=== PATIENT | female | born 1930 | race Caucasian/White ===

== ENCOUNTER 2018-05-15 18:47 | Inpatient (IN) | payer OTHER, MEDICAID ==
[~2018-05-15] VITALS: Ht 152.4 cm; Wt 59.4 kg
--- NOTE | 2018-05-15 19:11 | NUR ---
REPORT TAKEN FROM DAY SHIFT RN. ASSUMING PT CARE AT THIS TIME.
[2018-05-15 19:39] LABS: BASOPHILS # (AUTO) 0.1 K/uL (0.0-8.0); BASOPHILS % (AUTO) 1.1 % (0.0-2.0); EOSINOPHILS # (AUTO) 1.2 K/uL (0.0-0.7); EOSINOPHILS % (AUTO) 14.8 % (0.0-7.0); HEMATOCRIT 36.3 % (31.2-41.9); HEMOGLOBIN 12.3 g/dL (10.9-14.3); LYMPHOCYTES # (AUTO) 2.4 K/uL (20.0-40.0); LYMPHOCYTES % (AUTO) 30.5 % (20.5-51.5); MEAN CORPUSCULAR HGB CONC 34 g/dL (32.3-35.6); MEAN CORPUSCULAR VOLUME 97.6 fL (75.5-95.3); MONOCYTES # (AUTO) 0.6 K/uL (2.0-10.0); MONOCYTES % (AUTO) 7.8 % (0.0-11.0); NEUTROPHILS # (AUTO) 3.6 K/uL (1.8-8.9); NEUTROPHILS % (AUTO) 45.8 % (38.5-71.5); PLATELET COUNT (AUTO) 219 K/uL (179-408); RED BLOOD CELL COUNT(AUTO) 3.72 MIL/uL (3.63-4.92); WHITE BLOOD COUNT (AUTO) 7.8 K/uL (3.8-11.8)
--- NOTE | 2018-05-15 19:52 | NUR ---
PT TAKEN VIA GURNEY TO RADIOLOGY. NO ACUTE DISTRESS NOTED.
[2018-05-15 19:54] LABS: CARBON DIOXIDE 29 mmol/L (21-32); CHLORIDE 105 mmol/L (98-107); CREATININE 0.9 mg/dL (0.6-1.3); GLUCOSE 94 mg/dL (74-106); POTASSIUM 3.9 mmol/L (3.5-5.1); UREA NITROGEN, BLOOD 22 mg/dL (7-18)
[2018-05-15 19:55] LABS: ALANINE AMINOTRANSFERASE 19 U/L (14-59); ALKALINE PHOSPHATASE 74 U/L (50-136); ASPARTATE AMINOTRANSFERASE 20 U/L (15-37); BILIRUBIN,DIRECT 0.2 mg/dL (0.0-0.2); BILIRUBIN,TOTAL 0.8 mg/dL (0.2-1.0); TOTAL PROTEIN, SERUM 7.5 g/dL (6.4-8.2)
[2018-05-15 19:56] LABS: ACETAMINOPHEN < 2.0 ug/mL (10-30)
[2018-05-15 19:59] LABS: ETHANOL < 3 MG/DL (0-0)
[2018-05-15 20:21] LABS: THYROID STIMULATING HORMONE 2.614 mIU/mL (0.358-3.740)
--- NOTE | 2018-05-15 20:38 | NUR ---
REPORT GIVEN TO JESSICA MCCARTY.
--- NOTE | 2018-05-15 20:41 | NUR ---
DOG IS W/ [facility] [address] [facility] THEY WILL HOLD THE DOG FOR 30 DAYS
--- NOTE | 2018-05-15 21:02 | NUR ---
Pt. admitted to MHU , under care of Dr. MONIQUE/[facility] Belongs List completed
[2018-05-15 21:10] VITALS: BP 133/79
[2018-05-15] MEDS ORDERED: ACETAMINOPHEN 325 MG TABLET PO PRN (21:15)
[2018-05-15] MEDS ORDERED: MAGNESIUM HYDROXIDE 30 ML LIQUID UDC PO PRN (21:15)
[2018-05-15] MEDS ORDERED: TEMAZEPAM 7.5 MG CAPSULE PO PRN (21:15)
[2018-05-15] MEDS ORDERED: MAG HYDROX/AL HYDROX/SIMETH 30 ML LIQUID UDC PO PRN (21:15)
[2018-05-15] MEDS ORDERED: LORAZEPAM 0.5 MG TABLET PO PRN (21:15)
--- NOTE | 2018-05-15 21:30 | NUR ---
GPS: PATIENT ADMITTED TO MHU , UNDER CARE OF Dr. MONIQUE/EVARISTO FOR DTO/GD, VIA W/C. PATIENT IS A/O X2 TO NAME AND PLACE. AMBULATORY,COOPERATIVE WITH CARE. ATE SANDWICH AND TOOK SHOWER. PLEASANT UPON APPROACH. NO AGITATION NOTED.SOME DELUSIONAL NOTED. STATED I HAVE SON AND 2 DAUGHTER BUT I DON'T WANT THEM TO KNOW.I AM IN HOSPITAL. ASSISTED WITH SHOWER. NO C/O PAIN OR DISCOMFORT AT THIS TIME.BELONGS LIST COMPLETED.CONTINUE MONITORING FOR SAFETY.
--- NOTE | 2018-05-16 06:12 | NUR ---
GPS: REMAIN CALM AND COOPERATIVE WITH NURSING CARE. NO BEHAVIOR PROBLEM NOTED. SLEPT 6:30 HRS THROUGH THE NIGHT. CONTINUE PLAN OF CARE.
[2018-05-16 07:30] VITALS: BP 161/90
--- NOTE | 2018-05-16 13:33 | NUR ---
GPS.RN- 14 DAY HOLD ADVISED TO PATIENT, FAXED TO COURT NOTIFICATION, FINANCIAL AID MANAGER NEEDED. Addendum: 05/16/18 at 1449 by MENDEZ SILVERMAN RN DISREGARD ENTRY ENTERED INCORRECTLY
[2018-05-16] MEDS: busPIRone 5 MG TABLET PO SCH ×2 (13:38→17:00)
[2018-05-16 16:06] VITALS: BP 165/69
[2018-05-16] MEDS ORDERED: hydrALAZINE HCL 25 MG TABLET PO PRN (19:15)
[2018-05-16 20:00] VITALS: BP 169/82
[2018-05-16] MEDS: AMLODIPINE 5 MG TABLET PO SCH (20:09)
[2018-05-16] MEDS: QUETIAPINE FUMARATE 25 MG TABLET PO SCH (20:09)
[2018-05-16 20:30] VITALS: BP 154/81
--- NOTE | 2018-05-17 06:39 | NUR ---
GPS: REMAIN CALM AND COOPERATIVE WITH NURSING CARE. NO BEHAVIOR PROBLEM NOTED. SLEPT 7 HRS THROUGH THE NIGHT. CONTINUE PLAN OF CARE.
[2018-05-17 07:30] VITALS: BP 158/84
[2018-05-17] MEDS: busPIRone 5 MG TABLET PO SCH ×2 (08:23→16:56)
[2018-05-17] MEDS: AMLODIPINE 5 MG TABLET PO SCH (08:24)
[2018-05-17 15:16] VITALS: BP 154/81
[2018-05-17 20:00] VITALS: BP 150/81
[2018-05-17] MEDS: QUETIAPINE FUMARATE 25 MG TABLET PO SCH (20:41)
--- NOTE | 2018-05-18 05:57 | NUR ---
Patient slept 8 hours in total. No behavioral issues. No acute distress noted. Denies pain. Patient was med compliant. Patient remains cooperative. Vital signs stable. Safety and comfort measures maintained t/o shift. All meds given as ordered. All needs met.
[2018-05-18 07:30] VITALS: BP 150/85
[2018-05-18] MEDS: busPIRone 5 MG TABLET PO SCH ×3 (08:30→16:56)
[2018-05-18] MEDS: AMLODIPINE 5 MG TABLET PO SCH (08:31)
--- NOTE | 2018-05-18 13:47 | NUR ---
Initial Discharge Plan: Pt resides at [id number] [place] [address]. Pt reports living in the back area of the home in a covered parking space. Pt reports making the space into her home. Pt was unable to recall her telephone #. Upon discharge pt would like to return to her home where her belongings are at until the eviction goes through in June. SW inquired if pt would like alternative placement (i.e. Assisted Living, Board & Care) however pt denied, stating I'm not leaving with out my dog and belongings. SW will follow up to ensure pt is safely and adequately discharged.
--- NOTE | 2018-05-18 16:06 | NUR ---
Firearms Report: Mix Crusher Operator completed and submitted [employer] Firearms Report on 05/18/18 for 5150 DTO certification.
--- NOTE | 2018-05-18 16:22 | NUR ---
UR Note: Faxed updated clinicals to [facility] FloormanNeftali [phone]; f. [phone]). Awaiting authorization. SW will continue to follow-up.
[2018-05-18 16:51] VITALS: BP 137/80
[2018-05-18 19:30] VITALS: BP 132/75
[2018-05-18] MEDS: QUETIAPINE FUMARATE 25 MG TABLET PO SCH (20:00)
--- NOTE | 2018-05-18 22:00 | NUR ---
received to care, lying in bed, isolative, but pleasant upon approach. compliant with medications and staff direction. as of 2199, she appears to be asleep. no dsitress noted. will continue to monitor closely.
--- NOTE | 2018-05-19 07:11 | NUR ---
slept 8.5 hours total
[2018-05-19 07:30] VITALS: BP 120/80
[2018-05-19] MEDS: busPIRone 5 MG TABLET PO SCH ×3 (08:22→16:36)
[2018-05-19] MEDS: AMLODIPINE 5 MG TABLET PO SCH (08:23)
--- NOTE | 2018-05-19 10:25 | NUR ---
SW spoke to pt for discharge planning purposes. SW inquired about placement in order to assess if pt needed referrals. Per pt she will be retuning to [id number] [place] [address]; where she has a make-shift home in a parking space of the residence. Pt stated she would like to retrieve all her possessions and states per court order she has until June to vacate the premises. Pt reported she was not able to currently pay for any type of living arrangement (i.e. Assisted Living and or Board & Care) and reported receiving $900/month.
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
--- NOTE | 2018-05-19 13:17 | NUR ---
SANTO contacted [place] Radiator Mechanic, Neftali [phone] for discharge planning purposes. SANTO inquired about a list of approved SNF. SANTO left a detailed message; asking for a callback. SANTO will follow up.
--- NOTE | 2018-05-19 14:09 | NUR ---
TAMMY received a call back from Sophia Wic Site Coordinator, Neftali [phone] who inquired if a pt evaluation had been ordered for pt. Tammy informed Neftali that a request had been made on this date. Request made to Nurse Itz. Per Neftali, pt could qualify for a SNF depending on her pt evaluation/need. TAMMY will follow up.
--- NOTE | 2018-05-19 14:48 | NUR ---
UR Review: Tammy Faxed updated clinicals to [place] [employer] ChiefNeftali [phone]; f. [phone]). TAMMY will continue to follow-up.
[2018-05-19 17:13] VITALS: BP 141/83
[2018-05-19 19:46] VITALS: BP 147/78
[2018-05-19] MEDS: QUETIAPINE FUMARATE 25 MG TABLET PO SCH (20:00)
--- NOTE | 2018-05-20 06:00 | NUR ---
slept 9 hours total.
[2018-05-20 07:30] VITALS: BP 128/75
[2018-05-20] MEDS: AMLODIPINE 5 MG TABLET PO SCH (08:42)
[2018-05-20] MEDS: busPIRone 5 MG TABLET PO SCH ×2 (08:42→16:38)
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
--- NOTE | 2018-05-20 12:14 | NUR ---
SW contacted Ivanna Michael, from [facility] (pt still has a case open) to collaborate in helping pt with placement/discharge plan. SW was unable to speak to her as she is not in today however left a detailed message asking for a call back. SANTO will follow up.
[2018-05-20 12:21] LABS: *BILIRUBIN,URIN NEGATIVE (NEGATIVE); *BLOOD, URINE Trace-intact (NEGATIVE); *CLARITY,URINE CLEAR (CLEAR); *COLOR,URINE YELLOW (YELLOW); *KETONES,URINE NEGATIVE (NEGATIVE); *PROTEIN,URINE NEGATIVE (NEGATIVE); *UROBILINOGEN,URINE 0.2 E.U./dl (NORMAL); LEUKOCYTE ESTERASE ,URINE NEGATIVE (NEGATIVE); NITRITE, URINE NEGATIVE (NEGATIVE); UGLUCOSE NEGATIVE (NEGATIVE)
[2018-05-20 12:28] LABS: BACTERIA,URINE MODERATE /HPF (NONE SEEN); RBC,URINE 0-3 /HPF (0-3); SQUAMOUS EPITHELIAL CELL,UR FEW /HPF (NONE SEEN); WBC,URINE 0-3 /HPF (0-3)
--- NOTE | 2018-05-20 12:28 | NUR ---
SANTO contacted [facility] ; a message was left for a callback. Channel, Quality Supervisor to call back. SANTO will follow up.
--- NOTE | 2018-05-20 14:45 | NUR ---
SW received the following prison referral ; [place] for [facility] . Please follow up.
--- NOTE | 2018-05-20 15:53 | NUR ---
UR Note: Tammy Faxed updated clinicals to [employer] Sous Chef Kitchen Manager, Neftali [phone]; f. [phone]). TAMMY will continue to follow-up. AUTH# [id number] TAMMY received call from [place] S[employer] Kitchen Manager, Ozzy ([phone]) reporting that he would like to assist in placement for patient. Per Ozzy, pt would need to be conserved in order for pt to have placement in a "locked mental facility." Placed call to Neftali, and spoke with him at length about discharge planning. Per Neftali, [facility] would not authorize for patient's stay if the patient were to be conserved. TAMMY also left message with him about authorization for recuperative care. TAMMY will continue to follow-up.
[2018-05-20 16:36] VITALS: BP 138/68
[2018-05-20] MEDS: DIVALPROEX ER 250 MG TAB.SR.24H PO SCH (16:37)
[2018-05-20 20:16] VITALS: BP 137/72
[2018-05-20] MEDS: QUETIAPINE FUMARATE 25 MG TABLET PO SCH (20:37)
--- NOTE | 2018-05-20 22:00 | NUR ---
received to care, lying in bed, isolative, but pleasant upon approach. compliant with medications snacks, and staff direction. as of 2200, she appears to be asleep. no distress noted. will continue to monitor closely.
--- NOTE | 2018-05-21 07:00 | NUR ---
slept 8 hours total
[2018-05-21 07:30] VITALS: BP 105/75
[2018-05-21] MEDS: busPIRone 5 MG TABLET PO SCH ×2 (08:40→17:26)
[2018-05-21] MEDS: AMLODIPINE 5 MG TABLET PO SCH (08:41)
--- NOTE | 2018-05-21 14:42 | NUR ---
SS Discharge Planning Note: Rn Access placed call to [facility] ([phone]) and spoke with their Learning Coordinator who stated they are not able to provide services to patient with a dementia or Alzheimer's diagnosis. Was referred to [employer]'s [employer] Hotline ( ). SANTO spoke with Michael at [facility] to inquire about available resources for the patient post-discharge. Michael provided resource packet to this real estate underwriter as well as further information about local supports for this patient. SANTO placed call to [facility] ( ) to inquire about bed availability. Spoke with Dona who reported they do not have beds available at this time. SANTO contacted [facility] ([phone]) and spoke to raul, who advised real estate underwriter to call day of discharge at 10am to inquire about bed availability. SANTO spoke with Neftali Prado CM ([phone]) to inquire about recuperative care options for patient and to update on discharge planning process. Per Neftali, there are no recuperative care programs available to the patient at this time. SANTO informed Neftali about potential halfway placement. Neftali reported he would alert team and will assign a social work case manager to follow up with the patient to start working on long-term placement. SANTO will continue to follow-up to ensure safe discharge for patient.
--- NOTE | 2018-05-21 15:02 | NUR ---
UR Note: SANTO faxed updated clinicals to Neftali Prado CM ([phone]; f. [phone]). AUTH# [id number]. Pt authorized until 05/21/18 with review due on 05/22/18. SANTO will continue to follow-up. SANTO spoke with Neftali Prado CM ([phone]) to inquire about recuperative care options for patient and to update on discharge planning process. Per Neftali, there are no recuperative care programs available to the patient at this time. SANTO informed Neftali about potential fdc placement. Neftali reported he would alert team and will assign a geriatric social worker to follow up with the patient to start working on long-term placement. SANTO shared information about potential fdc placement with Neftali. SANTO will continue to follow-up.
[2018-05-21 16:23] VITALS: BP 150/72
--- NOTE | 2018-05-21 17:00 | NUR ---
Gps/Stave Mill Hand-Attends an participates in her group therapy, min.interactions with her peers, had been redirectable /
[2018-05-21] MEDS: DIVALPROEX ER 250 MG TAB.SR.24H PO SCH (17:26)
[2018-05-21] MEDS: QUETIAPINE FUMARATE 25 MG TABLET PO SCH (20:10)
[2018-05-21 20:45] VITALS: BP 148/77
--- NOTE | 2018-05-22 06:13 | NUR ---
GPS: Remain calm and cooperative with medications and care. slept 7 hrs through the night. no agitation noted at this time. continue monitoring for safety.
[2018-05-22] MEDS: busPIRone 5 MG TABLET PO SCH (08:25)
[2018-05-22] MEDS: AMLODIPINE 5 MG TABLET PO SCH (08:25)
[2018-05-22 11:12] VITALS: BP 159/90
--- NOTE | 2018-05-22 11:18 | NUR ---
Gps/Doper Operator- Discharge planning in progress.
--- NOTE | 2018-05-22 11:18 | NUR ---
Discharge Note: Patient will be discharged back to her previous address [[id number] [place] [address]] via taxi. Patient was provide with fdc placement but refused. Metal Grader alerted patients Adult Protective Services Worker, Otis Chang about patients discharge disposition and her refusal of fdc placement. Patient was provided with the homeless fdc packet, which includes a list of emergency shelters, housing resources, drop in centers, and showers/hot meals centers. This also included the Homeless Information Hotline (779)-006-2933 or 211, [employer] Office [employer] and [employer] , and the [facility] ([phone]; [employer] [facility] ([phone]). Patient has signed the Homeless Patient Waiver Form. Patient was referred to [facility] [phone] for Red Mud Thickener Operator referrals. Patient will be provided with Psychiatrist referrals from her HMO, [employer]. Patient was provided with outpatient mental health resources to [facility] Crisis Line , Katrina Jay , and the National Suicide Prevention Lifeline .
[2018-05-22 12:13] VITALS: BP 133/83
--- NOTE | 2018-05-22 14:20 | NUR ---
Gps/Special Education Aide- Reviewed medications, prescriptions , diet, safety emphasized, verbalized understanding. Reviewed referrals per [facility].Patient in good spirit, returned black cell phone, no self propelled mining machine operator.Patient will be discharged to home to previous address she provided.No complaints noted. Denies SI. no HI. noted.Will be discharged to [address] [place] [address]. [phone].via taxi (voucher)
--- NOTE | 2018-05-22 16:11 | NUR ---
UR Note: SANTO Faxed discharge clinicals to [place] [facility] SpecialistNeftali [phone]; f. [phone]). SANTO will continue to follow-up if needed. AUTH# [id number]
== END 2018-05-22 14:45 | disposition home or self-care (01) | DRG 885 ==
LOC: ER 18:49 → GPS 20:38
PROVIDERS: ADMIT Psychiatry & Neurology Psychosomatic Medicine; ATTEND Internal Medicine
DX: F25.0 Schizoaffective disorder, bipolar type (principal); F01.50 Vascular dementia, unspecified severity, without behavioral disturbance, psychotic disturbance, mood disturbance, and anxiety; Z59.0 Homelessness; I10 Essential (primary) hypertension; I67.2 Cerebral atherosclerosis; R79.89 Other specified abnormal findings of blood chemistry; E78.5 Hyperlipidemia, unspecified; Z85.72 Personal history of non-Hodgkin lymphomas
CPT/HCPCS: 36415; 70030-TC; 70450; 71045; 84443; 85025; 85730; 87077; 87086; 93005; A4663; G0480; G0480-TC